=== PATIENT | female | born 1955 | race African-American/Black ===

== ENCOUNTER 2019-08-05 10:01 | Emergency (ER) | payer OTHER ==
[2019-08-05 10:14] VITALS: BP 153/69; PULSE 60; TEMP 97.8
[2019-08-05] MEDS ORDERED: IBUPROFEN 600 MG TABLET (FP) PO ONE ×2 (10:29→10:35)
--- NOTE | 2019-08-05 10:29 | PDOC ---
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 She denies hitting head or spraining neck. She has mild pain in both knees, which is not affecting her walking. She also has generalized tightness in her shoulders, back, and pelvis. Review of systems: No visual or focal neurologic symptoms or unsteadiness of gait. No chest pain, shortness of breath, abdominal pain, nausea, vomiting, diarrhea, urinary tract symptoms, vaginal bleeding or discharge. Remainder of systems reviewed and negative Past medical history: Mild hypertension controlled on medication. Denies any other active medical or surgical problems at present Social/family history reviewed and noncontributory Physical exam: Alert and oriented well-developed well-nourished no acute distress cheerful and cooperative. Ambulating without difficulty Afebrile, vital signs normal Head atraumatic. PERRLA, fundi benign, ENT clear Neck without tenderness or deformity, full range of motion without pain Lungs clear to P&A, full breath sounds bilaterally. No chest wall or rib cage tenderness or deformity. CV regular without murmur rub or gallop Abdomen soft nontender without mass organomegaly. No CVAT Pelvis and spine without point tenderness or deformity. Extremities no CCE. No visible or palpable signs of trauma. Both knees were examined with negative findings including negative Lockman, no stress tenderness or laxity of the MCL or ACL, patella and patellar retinaculum intact and nontender. Distal pulses full and symmetric. No distal sensory deficits. Neurological C2 to 12 intact. Strength full and symmetric. No focal sensory or motor deficits. Cerebellar function intact. Gait stable and unimpaired Impression: Generalized whiplash type syndrome with muscle tightness, bilateral knee strain without serious injury to ligaments, menisci, or bone. Plan: Symptomatic treatment, rest, and follow-up if no improvement. Fully ambulatory and in no severe pain or other distress at discharge to follow-up as directed Past History - Past Medical History Allergies/Adverse Reactions: Allergies Allergy/AdvReac Type Severity Reaction Status Date / Time No Known Allergies Allergy Verified 08/05/19 10:19 Home Medications: Ambulatory Orders Cyclobenzaprine HCl [Flexeril -] 10 mg PO TID #10 tablet 08/05/19 Ibuprofen [Motrin -] 600 mg PO TID #10 tablet 08/05/19 COPD: No HTN: Yes Hypercholesterolemia: Yes - Psycho Social/Smoking Cessation Hx Smoking History: Never smoked Hx Alcohol Use: No Drug/Substance Use Hx: No *Physical Exam - Vital Signs Last Vital Signs Temp Pulse Resp BP Pulse Ox 97.8 F 60 18 153/69 100 08/05/19 10:03 08/05/19 10:03 08/05/19 10:03 08/05/19 10:03 08/05/19 10:03 Discharge - Discharge Information Problems reviewed: Yes Clinical Impression/Diagnosis: Knee sprain, bilateral Condition: Stable Disposition: HOME - Admission No - Additional Discharge Information Prescriptions: Cyclobenzaprine HCl [Flexeril -] 10 mg PO TID #10 tablet Ibuprofen [Motrin -] 600 mg PO TID #10 tablet - Follow up/Referral Referrals: David Robison MD [Staff Physician] - - Patient Discharge Instructions Patient Printed Discharge Instructions: DI for Whiplash, DI for Knee Sprain Additional Instructions: Rest, warm baths or showers, heat to shoulders and back, ice to knees. Medication as directed. Recheck if pain persists 3 to 5 days as directed. - Post Discharge Activity Work/Back to School Note: Back to Work
== END 2019-08-05 11:12 | disposition home or self-care (01) ==
LOC: FER 10:01
DX: S83.92XA Sprain of unspecified site of left knee, initial encounter (principal); S83.91XA Sprain of unspecified site of right knee, initial encounter; W18.09XA Striking against other object with subsequent fall, initial encounter; Y93.89 Activity, other specified; Y92.238 Other place in hospital as the place of occurrence of the external cause; Y99.0 Civilian activity done for income or pay; I10 Essential (primary) hypertension; E78.00 Pure hypercholesterolemia, unspecified
CPT/HCPCS: 99281-25